=== PATIENT | female | born 1970 | race Caucasian/White ===

== ENCOUNTER → 2020-12-05 09:22 | Outpatient (BNVA) | payer SELFPAY | PROVIDERS: PCP Family Medicine; Visit Provider Family Medicine | DX: R53.83 Other fatigue (principal); E66.9 Obesity, unspecified; Z13.6 Encounter for screening for cardiovascular disorders | CPT/HCPCS: 80053; 80061; 82306; 84443; 85025 ==

== ENCOUNTER → 2020-12-06 08:30 | Outpatient (BNVA) | payer SELFPAY | PROVIDERS: PCP Family Medicine; Visit Provider Family Medicine | DX: R53.83 Other fatigue (principal); E66.9 Obesity, unspecified; F17.290 Nicotine dependence, other tobacco product, uncomplicated; R73.09 Other abnormal glucose; Z13.6 Encounter for screening for cardiovascular disorders; Z76.89 Persons encountering health services in other specified circumstances | CPT/HCPCS: 83036 ==

== ENCOUNTER → 2021-01-02 09:55 | Outpatient (BNVA) | payer BC, SELFPAY | PROVIDERS: PCP Family Medicine; Visit Provider Family Medicine | DX: Z01.419 Encounter for gynecological examination (general) (routine) without abnormal findings (principal); E11.9 Type 2 diabetes mellitus without complications; Z12.11 Encounter for screening for malignant neoplasm of colon; Z86.010 Personal history of colon polyps | CPT/HCPCS: 80053; 88175 ==

== ENCOUNTER 2021-01-08 14:53 | Outpatient (CLI) | payer BC, SELFPAY ==
--- NOTE | 2021-01-08 15:00 | MM_ITS ---
WS: [id number] BILATERAL DIGITAL SCREENING MAMMOGRAPHY WITH CAD CLINICAL INFORMATION: screening mammogram HISTORY: Screening mammogram. No current complaints. COMPARISON: TECHNIQUE: Bilateral CC and MLO views. FINDINGS: Scattered fibroglandular densities bilaterally. A few punctate calcifications. No suspicious focal ma ss, asymmetry, calcifications, or architectural distortion. No evidence of malignancy. MM/[place] [id number] IMPRESSION: BI-RADS: 2-Benign FOLLOW UP: 1 Year Follow-up Recommend return to annual screening mammography.
== END 2021-01-08 14:54 | disposition home or self-care (01) ==
PROVIDERS: PCP Family Medicine; Visit Provider Family Medicine
DX: Z12.31 Encounter for screening mammogram for malignant neoplasm of breast (principal)
CPT/HCPCS: 77067

== ENCOUNTER 2021-01-24 16:00 | Emergency (ER) | payer BC, SELFPAY ==
[2021-01-24 16:04] VITALS: BP 152/94; PULSE 67; RESP 18; TEMP 37.1; O2SAT 99; BMI 34.4
--- NOTE | 2021-01-24 17:05 | XRR_ITS ---
PROCEDURE INFORMATION: Exam: XR Right Ribs with PA Chest Exam date and time: 01/24/2021 5:06 PM Age: 50 years old Clinical indication: Injury or trauma; Rib area; Blunt trauma (contusions or hematomas); Injury date: 01/24/2021; Injury details: Leaning into washer/right rib pain; Additional info: Injury, pain, no prior imaging TECHNIQUE: Imaging protocol: XR Right ribs with PA chest. Views: 3 views COMPARISON: No relevant prior studies available. FINDINGS: Lungs: Unremarkable. No consolidation. Pleural spaces: Unremarkable. No pleural effusion. No pneumothorax. Heart/Mediastinum: Unremarkable. No cardiomegaly. Bones/joints: Unremarkable. XR/XR ribs RT mn 3V w CXR1V [id number] IMPRESSION: No acute findings.
--- NOTE | 2021-01-24 17:06 | W.ED.GENADLT ---
HPI - General Adult General: Chief complaint: General Medical Stated complaint: R side pain, pt states possibly cracked ribs Time Seen by Provider: 01/24/21 17:03 History of Present Illness: HPI narrative: 50-year-old female comes in for complaints of anterior right lower rib pain. Patient yesterday was doing laundry and leaned over the edge of her while she was shaving and felt a pop in her right lower anterior lower rib area. Since then patient has had tenderness to the right lower ribs with difficulty taking a deep breath due to pain. Patient appears well. Patient appears in mild to no pain at rest. Review of Systems General: Reports: 10 or more systems reviewed and unremarkable except in HPI and below Musc: Reports: other (Right anterior lower rib pain) PFSH ED PFSH: Medical History History of uterine cancer Surgical History H/O: hysterectomy 2017 Family History Other Cancer Lung disease Thyroid condition Social History Smoking and tobacco status: current every day smoker cigarettes and e-cigarettes E-Cigarette Details: vaporizer device and with nicotine Alcohol intake: never Physical Exam Const: COMMON NORMALS: no acute distress and patient oriented x3 GENERAL APPEARANCE: cooperative HENMT: COMMON NORMALS: normocephalic and Normal external nose present HEAD & SCALP: normal to inspection and normocephalic NOSE: Normal external nose present MOUTH: Normal oral and palatal mucosa present Eye: GENERAL EYE: appearance normal, both eyes and all related structures Neck/C-Spine: COMMON NORMALS: full ROM Lymph: LYMPHATIC: no lymphadenopathy noted Chest: OTHER: Tenderness to right lower anterior ribs without feeling of crepitus or flailing of the chest. Lung sounds are normal. Resp: COMMON NORMALS: normal respiratory effort and clear to auscultation bilaterally EFFORT & INSPECTION: Yes able to speak in complete sentences AUSCULTATION: clear to auscultation bilaterally Cardio: COMMON NORMALS: regular rate and regular rhythm RATE: regular rate RHYTHM: regular rhythm GI: COMMON NORMALS: non-tender Back/Pelvis: COMMON NORMALS: thoracic and lumbar spine normal to inspection Extremity: COMMON NORMALS: normal to inspection Neuro: COMMON NORMALS: patient oriented x3 and moves all extremities Psych: COMMON NORMALS: mental status grossly normal and cooperative Skin: COMMON NORMALS: no rashes or lesions noted GENERAL SKIN EXAM: no rashes or lesions noted Course Vital Signs: Vital signs: Vital Signs Temperature 98.7 F 01/24/21 16:04 Pulse Rate 67 01/24/21 16:04 Respiratory Rate 18 01/24/21 16:04 Blood Pressure 152/94 01/24/21 16:04 Pulse Oximetry 99 01/24/21 16:04 MDM - General Adult MDM Narrative: Medical decision making narrative: 50-year-old female comes in for complaints of right anterior rib pain. On exam we noted no clear crepitus or flailing of the chest. Lungs were clear to auscultation. Differential diagnosis includes fracture of the rib, contusion of the rib, pneumothorax. X-rays noted no significant abnormalities. Reviewed exam with patient with recommendations for follow-up or return to the ER. Patient reported understanding and agreed to plan. Discharge Plan Discharge Patient Disposition: Home Clinical Impression: Contusion of rib on right side Qualifiers: Encounter type: initial encounter Qualified Code(s): S20.211A - Contusion of right front wall of thorax, initial encounter Condition: Stable Prescriptions: New hydrocodone-acetaminophen 5-325 mg tablet 1 tab PO Q8H PRN (Reason: pain (scale score 7-10)) Qty: 7 RF: 0 No Action cholecalciferol (vitamin D3) 1,250 mcg (50,000 unit) capsule 50,000 unit PO .ONCE WEEKLY Qty: 12 RF: 0 metformin 500 mg tablet extended release 24hr 500 mg PO BID Qty: 60 RF: 1 Discharge Orders: Discharge ED (Routine); Ordered 01/24/21 Ordered By: Kameron Kimball Referrals: Jada Smith DO [Primary Care Provider] - Discharge Diet: Usual diet Discharge Activity: Increase activity as tolerated Patient Instructions: Rib Fracture (ED), Opioid Safety Activity Restrictions/Additional Instructions: Activity as tolerated. Use ice to the area for comfort. Use acetaminophen and ibuprofen for pain control. Use hydrocodone for breakthrough pain. Drink plenty of fluids. Splint ribs when taking a deep breath. Follow-up with primary care as needed. Return to the ER for new concerns. 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
[2021-01-24 18:25] VITALS: BP 116/68; PULSE 59; RESP 16; O2SAT 98
[2021-01-24 18:26] VITALS: BP 116/68; PULSE 59; RESP 16; O2SAT 98
== END 2021-01-24 18:27 | disposition home or self-care (01) ==
PROVIDERS: Emergency Provider Nurse Practitioner Family; PCP Family Medicine
DX: S20.211A Contusion of right front wall of thorax, initial encounter (principal); Z79.84 Long term (current) use of oral hypoglycemic drugs; Z85.42 Personal history of malignant neoplasm of other parts of uterus; F17.290 Nicotine dependence, other tobacco product, uncomplicated; X50.1XXA Overexertion from prolonged static or awkward postures, initial encounter
CPT/HCPCS: 71101; 99282

== ENCOUNTER → 2021-03-31 12:11 | Outpatient (BNVA) | payer BC, SELFPAY | PROVIDERS: PCP Family Medicine; Visit Provider Family Medicine | DX: E11.9 Type 2 diabetes mellitus without complications (principal); F41.9 Anxiety disorder, unspecified | CPT/HCPCS: 80053; 83036 ==

== ENCOUNTER 2021-04-25 08:41 | Outpatient (CLI) | payer BC, SELFPAY ==
--- NOTE | 2021-04-25 08:45 | US_ITS ---
WS: [id number] RIGHT UPPER QUADRANT ULTRASOUND HISTORY: Elevated LFTs. COMPARISON: None available. Liver: 17.7 cm in length. Mildly enlarged liver. Mild diffuse coarsened echotexture from hepatic stea tosis. No mass or bile duct dilatation. Gallbladder: Normally distended gallbladder with no stones or wall thickening. CBD: 0.3 cm Pancreas: Normal size and echogenicity. Right kidney: 9.8 cm in length. Normal size and echogenicity. No hydronephrosis or mass. Aorta and IVC: Unremarkable abdominal aorta and IVC. No ascites. US/US abdomen limited [id number] IMPRESSION: 1. Normal gallbladder. 2. No bile duct dilatation. 3. Mild hepatomegaly and hepatic steatosis.
== END 2021-04-25 08:42 | disposition home or self-care (01) ==
LOC: US 08:42
PROVIDERS: PCP Family Medicine; Visit Provider Family Medicine
DX: R79.89 Other specified abnormal findings of blood chemistry (principal); R16.0 Hepatomegaly, not elsewhere classified; K76.0 Fatty (change of) liver, not elsewhere classified
CPT/HCPCS: 76705

== ENCOUNTER → 2021-06-03 11:23 | Outpatient (BNVA) | payer OTHER, SELFPAY | PROVIDERS: PCP Family Medicine; Visit Provider Surgery | DX: Z20.822 Contact with and (suspected) exposure to COVID-19 (principal) | CPT/HCPCS: 87635 ==

== ENCOUNTER 2021-06-09 08:32 | Day surgery (SDC) | payer BC, SELFPAY ==
[2021-06-05 15:38] VITALS: BMI 32.3
[2021-06-09 09:18] VITALS: BP 134/84; PULSE 57; RESP 16; TEMP 36.4; O2SAT 100
[2021-06-09] MEDS: sodium chloride 0.9% 1,000 ML 30 ML IV (09:36)
[2021-06-09 09:40] LABS: Glucose Point of Care 141 mg/dL (70-110)
--- NOTE | 2021-06-09 10:02 | P.ANESASSM_ITS ---
Pre-Anesthetic Assessment Pre-Anesthetic Assessment: Height/Weight: Height 1.47 m Weight 70.307 kg Temp Pulse Resp BP Pulse Ox 97.6 F 57 L 16 134/84 100 06/09/21 09:18 06/09/21 09:18 06/09/21 09:18 06/09/21 09:18 06/09/21 09:18 Preop Diagnosis: screening colonoscopy Proposed Procedure: Operation Date: 06/09/21 10:00 Proposed Procedures p Colonoscopy 19450 Z86.010(Not Applicable) - Luan Jackson MD Was Beta Justus taken within 24 hours: N/A Was Clonidine taken within 24 hours: N/A Last intake: Intake Last Liquid Date 06/08/21 Last Liquid Time 23:00 Last Solid Date 06/07/21 Last Solid Time 20:00 Exam: Pre-Anes Outpt Exam: alert, oriented x 3, clear to auscultation bilaterally and regular rate & rhythm Airway: Submandibular: WNL Cervical ROM: WNL MP: 2 Dentition: Full History/ROS: No significant history except as noted and No significant complaints Pulmonary: Pulmonary: None reported CV/HEM: CV/HEM: None reported : : None reported Hepatic: Hepatic: None reported GI: GI: None reported Metabolic: Metabolic: DM Musc/skel: Musc/skel: None reported Neuropsych: Neuropsych: Anxiety Anesthetic Plan: ASA status: 3 Anesthesia: Anesthesia Evaluation and MAC Risk of > 500 ml blood loss (7ml/kg in children): No Meds/Allergies Current Medications: Current Medications Generic Name Dose Route Start Last Admin Trade Name Freq PRN Reason Stop Dose Admin Sodium Chloride 1,000 mls @ 30 ml s/hr 06/09/21 09:00 06/09/21 09:36 Sodium Chloride 0.9% IV 06/10/21 08:59 30 mls/hr .Q24H DEON Administration PFSH Anesthesia PFSH: Medical History Anxiety History of colon polyps History of uterine cancer Type 2 diabetes mellitus, without long-term current use of insulin Surgical History S/P JIMMY-BSO Status post colonoscopy Family History Other Cancer Lung disease Thyroid condition Social History Smoking and tobacco status: current every day smoker cigarettes and e- cigarettes E-Cigarette Details: vaporizer device and with nicotine Alcohol intake: never Data Anesthesia Other Labs: Laboratory Results - last 48 hr 06/09/21 09:35 POC Glucose 141 H Cardiac Studies: No Data to Display
--- NOTE | 2021-06-09 10:32 | P.HP_ITS ---
Same Day Surgery H&P Indication for Procedure/HPI DATE OF PROCEDURE: June 09, 2021 CHIEF COMPLAINT/INDICATIONFOR SURGICAL PROCEDURE: History of colon polyps with plan for colonoscopy PREOP DIAGNOSIS: screening colonoscopy PLANNED PROCEDRUE: Operation Date: 06/09/21 10:00 Proposed Procedures p Colonoscopy 94846 Z86.010(Not Applicable) - Luan Jackson MD Medications/Allergies* Allergies/Adverse Reactions Allergy/AdvReac Type Severity Reaction Status Date / Time No Known Allergies Allergy Verified 06/09/21 09:22 Current Medications: Generic Name Dose Route Start Last Admin Trade Name Freq PRN Reason Stop Dose Admin Sodium Chloride 1,000 mls @ 30 mls/hr 06/09/21 09:00 06/09/21 09:36 Sodium Chloride 0.9% IV 06/10/21 08:59 30 mls/hr .Q24H DEON Administration Pertinent History/Comorbid Conditions* Medical History (Updated 04/11/21 @ 08:47 by Luan Jackson MD) Anxiety History of colon polyps History of uterine cancer Type 2 diabetes mellitus, without long-term current use of insulin Surgical History (Updated 04/11/21 @ 08:42 by Luan Jackson MD) S/P JIMMY-BSO Status post colonoscopy Family History (Updated 12/05/20 @ 09:01 by Senia Byers LPN) Lung disease Cancer Thyroid condition Social History Smoking and tobacco status: current every day smoker cigarettes and e- cigarettes E-Cigarette Details: vaporizer device and with nicotine Alcohol intake: never Pertinent Exam Findings alert, oriented x 3 and regular rate & rhythm Recommendations Surgery/Procedure today Coding Level of Care Code Acute 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
[2021-06-09 11:11] VITALS: BP 90/59; PULSE 59; RESP 16; TEMP 36.1; O2SAT 100
[2021-06-09 11:22] VITALS: BP 115/71; PULSE 59; RESP 18; O2SAT 99
--- NOTE | 2021-06-09 15:51 | ANE.PACU2 ---
Inpatient post-anesthesia follow up: Airway intact: Yes Vital signs: Temperature 97 F Pulse Rate 59 Respiratory Rate 18 Blood Pressure 115/71 Pulse Oximetry 99 Oxygen Delivery Me thod Room Air Oxygen Flow Rate 3 Fraction of Inspir ed Oxygen Hydration adequate: Yes Nausea and vomiting: No Pain level: 1 Mental status: Baseline
== END 2021-06-09 11:37 | disposition home or self-care (01) ==
PROVIDERS: PCP Family Medicine; Visit Provider Surgery
PROC: 0DJD8ZZ Inspection of Lower Intestinal Tract, Via Natural or Artificial Opening Endoscopic (ICD-10-PCS; CPT 45378; principal; 2021-06-09 10:00)
DX: Z12.11 Encounter for screening for malignant neoplasm of colon (principal); Z86.010 Personal history of colon polyps; K57.30 Diverticulosis of large intestine without perforation or abscess without bleeding; K63.5 Polyp of colon; E11.9 Type 2 diabetes mellitus without complications; F41.9 Anxiety disorder, unspecified; Z85.42 Personal history of malignant neoplasm of other parts of uterus; F17.290 Nicotine dependence, other tobacco product, uncomplicated
CPT/HCPCS: 36416; 45380; 82962; 88305; 96360; 96361; J2704; J7030

== ENCOUNTER → 2021-07-07 08:53 | Outpatient (BNVA) | payer BC, SELFPAY | PROVIDERS: PCP Family Medicine; Visit Provider Family Medicine | DX: E11.9 Type 2 diabetes mellitus without complications (principal) | CPT/HCPCS: 80053; 80061; 83036 ==

== ENCOUNTER → 2022-01-08 08:50 | Outpatient (BNVA) | payer BC, SELFPAY | PROVIDERS: PCP Family Medicine; Visit Provider Family Medicine | DX: E11.9 Type 2 diabetes mellitus without complications (principal); E78.5 Hyperlipidemia, unspecified; F17.290 Nicotine dependence, other tobacco product, uncomplicated; F41.9 Anxiety disorder, unspecified | CPT/HCPCS: 80053; 80061; 83036; 85025 ==

== ENCOUNTER 2022-03-19 11:10 | Outpatient (CLI) | payer BC, SELFPAY ==
--- NOTE | 2022-03-19 11:20 | MM_ITS ---
WS: [id number] BILATERAL SCREENING DIGITAL BREAST TOMOSYNTHESIS MAMMOGRAM WITH CAD HISTORY: screening mammogram COMPARISON: 01/08/2021 and 01/24/2018 Bilateral CC and MLO views with tomosynthesis and synthetic mammography submitted. Computer aided det ection analyzed. Breast composition: There are scattered areas of fibroglandular density. No suspicious masses, microc alcifications or architectural distortion. Stable 5 mm nodule in the lateral RIGHT breast. MM/[place] [id number] IMPRESSION: BI-RADS: 2-Benign FOLLOW UP: 1 Year Follow-up
== END 2022-03-19 11:11 | disposition home or self-care (01) ==
PROVIDERS: PCP Family Medicine; Visit Provider Family Medicine
DX: Z12.31 Encounter for screening mammogram for malignant neoplasm of breast (principal)
CPT/HCPCS: 77063; 77067

== ENCOUNTER → 2022-07-30 13:32 | Outpatient (BNVA) | payer BC, SELFPAY | PROVIDERS: PCP Family Medicine; Visit Provider Family Medicine | DX: E11.9 Type 2 diabetes mellitus without complications (principal) | CPT/HCPCS: 80053; 83036 ==

== ENCOUNTER → 2023-01-28 09:39 | Outpatient (BNVA) | payer BC, SELFPAY | PROVIDERS: PCP Family Medicine; Visit Provider Family Medicine | DX: E11.9 Type 2 diabetes mellitus without complications (principal) | CPT/HCPCS: 80053; 80061; 82043; 83036; 85025 ==

== ENCOUNTER 2023-03-23 15:27 | Outpatient (CLI) | payer BC, SELFPAY ==
--- NOTE | 2023-03-23 15:34 | MM_ITS ---
WS: [id number] BILATERAL 3D TOMOSYNTHESIS DIGITAL SCREENING MAMMOGRAPHY WITH CAD CLINICAL INFORMATION: screening mammogram HISTORY: Screening mammogram. No current complaints. COMPARISON: 2021 TECHNIQUE: Bilateral CC and MLO views. FINDINGS: Scattered fibroglandular densities bilaterally. No suspicious focal mass, asymmetry, calcifications, or architectural distortion. No evidence of malignancy. Incidental punctate calcifications. MM/[place] [id number] IMPRESSION: BI-RADS: 2-Benign FOLLOW UP: 1 Year Follow-up Recommend return to annual screening mammography.
== END 2023-03-23 15:28 | disposition home or self-care (01) ==
PROVIDERS: PCP Family Medicine; Visit Provider Family Medicine
DX: Z12.31 Encounter for screening mammogram for malignant neoplasm of breast (principal)
CPT/HCPCS: 77063; 77067; 80053; 80061; 82043; 83036; 85025

== ENCOUNTER → 2023-08-12 14:21 | Outpatient (BNVA) | payer BC, SELFPAY | PROVIDERS: PCP Family Medicine; Visit Provider Family Medicine | DX: E11.9 Type 2 diabetes mellitus without complications (principal) | CPT/HCPCS: 80053; 83036 ==

== ENCOUNTER 2024-03-03 13:45 | Outpatient (CLI) | payer OTHER, SELFPAY ==
--- NOTE | 2024-03-03 13:45 | CT_ITS ---
WS: [id number] LDCT LUNG CANCER SCREENING TECHNIQUE: Noncontrast CT of the chest with coronal and sagittal reformatted images. CLINICAL INFORMATION: screening COMPARISON: None. DLP: 78.07 mGy.cm DIvol: Mean CTDIvol: 1.60 (mGy) All CT scans at [facility] use at least one of these dose optimization techniques: automat ed exposure control; mA and/or kV adjustment per patient size (includes targeted exams where dose is matched to clinical indication); or iterative reconstruction. FINDINGS: Lungs are well aerated. No acute pulmonary infiltrates. No suspicious pulmonary parenchymal abnormalities. Masslike enlargement of the LEFT thyroid partially visualized may be due to goiter. Recommend further evaluation with thyroid ultrasound. Mild mass effect on the trachea. LEFT thyroid mass extends into the upper mediastinum. Normal caliber thoracic aorta. Coronary calcifi cation. No mediastinal or hilar lymphadenopathy. No axillary lymphadenopathy. Mild thoracic curve hypertrophic changes thoracic spine. Adrenal glands are normal. Fluid distended s tomach. CT/CT lung screening [id number] IMPRESSION: Masslike enlargement of the LEFT thyroid partially visualized may be due to goi ter. Recommend further evaluation with thyroid ultrasound. LUNG-RADS: 1S-Negative with Significant Findings FOLLOW UP: 12 Month: Continue annual screening with LDCT
== END 2024-03-03 13:46 | disposition home or self-care (01) ==
PROVIDERS: PCP Family Medicine; Visit Provider Family Medicine
DX: Z12.2 Encounter for screening for malignant neoplasm of respiratory organs (principal); F17.290 Nicotine dependence, other tobacco product, uncomplicated; E04.9 Nontoxic goiter, unspecified
CPT/HCPCS: 71271; 80053; 80061; 82043; 83036; 85025

== ENCOUNTER → 2024-07-11 09:04 | Outpatient (BNVA) | payer OTHER, SELFPAY | PROVIDERS: PCP Family Medicine; Visit Provider Family Medicine | DX: E11.9 Type 2 diabetes mellitus without complications (principal) | CPT/HCPCS: 83036; 84443 ==

== ENCOUNTER → 2024-12-26 08:24 | Outpatient (BNVA) | payer OTHER, SELFPAY | PROVIDERS: PCP Family Medicine; Visit Provider Family Medicine | DX: E11.9 Type 2 diabetes mellitus without complications (principal) | CPT/HCPCS: 80053; 80061; 82043; 83036; 85025 ==

== ENCOUNTER 2024-12-28 13:08 | Outpatient (CLI) | payer OTHER, SELFPAY ==
--- NOTE | 2024-12-28 13:00 | MM_ITS ---
WS: [id number] BILATERAL SCREENING DIGITAL TOMOSYNTHESIS MAMMOGRAM WITH CAD HISTORY: screening COMPARISON: 03/23/2023, 03/19/2022, 01/08/2021 Bilateral CC and MLO views with tomosynthesis and synthetic mammography submitted. Computer aided detection analyzed. Breast composition: There are scattered areas of fibroglandular density. No suspicious masses, microcalcifications or architectural distortion. Several small masses in the upper outer quadrant of the RIGHT breast have been present on prior examinations that are probably lymph nodes. No suspicious grouping of calcifications. MM/MM [facility] tomosynthesis [id number] IMPRESSION: BI-RADS: 2 - Benign. FOLLOW UP: 1 Year Follow-up
== END 2024-12-28 13:09 | disposition home or self-care (01) ==
LOC: RAD 13:09
PROVIDERS: PCP Family Medicine; Visit Provider Family Medicine
DX: Z12.31 Encounter for screening mammogram for malignant neoplasm of breast (principal); R92.323 Mammographic fibroglandular density, bilateral breasts; N63.11 Unspecified lump in the right breast, upper outer quadrant
CPT/HCPCS: 77063; 77067

== ENCOUNTER 2025-06-26 09:27 | Outpatient (CLI) | payer OTHER, SELFPAY | END 2025-06-26 09:28 | disposition home or self-care (01) | LOC: RAD 06-28 07:10 | PROVIDERS: PCP Family Medicine; Visit Provider Family Medicine | DX: E11.9 Type 2 diabetes mellitus without complications (principal) | CPT/HCPCS: 80053; 83036 ==

== ENCOUNTER 2025-07-18 07:28 | Outpatient (CLI) | payer OTHER, SELFPAY ==
--- NOTE | 2025-07-18 07:45 | CT_ITS ---
WS: [id number] LDCT LUNG CANCER SCREENING TECHNIQUE: Noncontrast CT of the chest with coronal and sagittal reformatted images. CLINICAL INFORMATION: screening COMPARISON: 03/03/2024 DLP: 101.89 mGy.cm DIvol: Mean CTDIvol: 1.70 (mGy) All CT scans at [facility] use at least one of these dose optimization techniques: automated exposure control; mA and/or kV adjustment per patient size (includes targeted exams where dose is matched to clinical indication); or iterative reconstruction. FINDINGS: No new suspicious pulmonary parenchymal abnormalities. Masslike enlargement of the LEFT thyroid partially visualized similar to previous. Normal caliber thoracic aorta. Coronary calcification. No mediastinal or hilar lymphadenopathy. No axillary lymphadenopathy Mild mass effect on the trachea. LEFT thyroid mass extends into the upper mediastinum. Mild thoracic curve. Hypertrophic changes thoracic spine. Adrenal glands are normal. Fluid distended stomach. CT/CT lung screening [id number] IMPRESSION: LUNG-RADS: 1-Negative FOLLOW UP: 12 Month: Continue annual screening with LDCT
== END 2025-07-18 07:29 | disposition home or self-care (01) ==
LOC: RAD 07:29
PROVIDERS: PCP Family Medicine; Visit Provider Family Medicine
DX: Z12.2 Encounter for screening for malignant neoplasm of respiratory organs (principal); Z87.891 Personal history of nicotine dependence; R59.0 Localized enlarged lymph nodes; I70.0 Atherosclerosis of aorta; I25.10 Atherosclerotic heart disease of native coronary artery without angina pectoris; M40.04 Postural kyphosis, thoracic region; R14.0 Abdominal distension (gaseous); J98.59 Other diseases of mediastinum, not elsewhere classified; E07.9 Disorder of thyroid, unspecified; D14.2 Benign neoplasm of trachea
CPT/HCPCS: 71271

== ENCOUNTER 2025-07-31 07:26 | Outpatient (CLI) | payer OTHER, SELFPAY ==
--- NOTE | 2025-07-31 07:30 | US_ITS ---
WS: [id number] THYROID ULTRASOUND HISTORY: Thyroid mass COMPARISON: None available. Right lobe: 1.2 cm x 1.2 cm x 4.6 cm (w x ap x l). Volume: 3.2 cm3. Hypoechoic mass with increased vascularity in the superior pole. Mass measures 0.8 x 0.7 x 1.1 cm and is ovoid. This is a solid mass which is very hypoechoic and smooth margins. No echogenic foci. No additional mass or nodule. Left lobe: 3.5 cm x 2.3 cm x 5.2 cm (w x ap x l). Volume: 20.5 cm3. Enlarged LEFT thyroid. There is a large solid nodule in the mid gland measuring 3.3 x 2.1 x 2.4 cm. Solid nodule with scattered cystic areas. The margins are well-defined. No echogenic foci. There is increased vascularity. Within this large nodule is a spongiform nodule. Isthmus: 0.2 cm. US/US thyroid [id number] IMPRESSION: 1. TI-RADS 4; moderately suspicious. Based on TI-RADS criteria nodule in the R IGHT thyroid should undergo yearly ultrasound evaluations at 1, 2, 3 and 5 year s. 2. TI-RADS 3; mildly suspicious nodule LEFT thyroid. Based on TI-RADS criteria ultrasound-guided FNA is recommended at this time.
== END 2025-07-31 07:27 | disposition home or self-care (01) ==
LOC: RAD 07:28
PROVIDERS: PCP Family Medicine; Visit Provider Family Medicine
DX: E07.9 Disorder of thyroid, unspecified (principal); R09.89 Other specified symptoms and signs involving the circulatory and respiratory systems; E04.2 Nontoxic multinodular goiter
CPT/HCPCS: 76536